=== PATIENT | female | born 1965 | race Caucasian/White ===

== ENCOUNTER 2022-10-19 09:49 | Emergency (ER) | payer BC ==
[2022-10-19] MEDS ORDERED: Sodium Chloride 0.9% 10 ML Syringe FLUSH PRN ×2 (10:16→10:59)
[2022-10-19] MEDS ORDERED: Meclizine 12.5 MG Tab PO ONE (10:18)
[2022-10-19] MEDS ORDERED: Ondansetron 4 MG/2 ML SDV IVPUSH ONE (10:23)
[2022-10-19] MEDS ORDERED: Iopamidol 755 Mg/ML 100 ML Bottle IVPUSH ONE (10:59)
[2022-10-19] MEDS ORDERED: Ketorolac 30 MG/ML SDV IVPUSH ONE (11:51)
[2022-10-19] MEDS ORDERED: diphenhydrAMINE 50 MG/ML SDV IVPUSH ONE (11:52)
== END 2022-10-19 12:27 | disposition home or self-care (01) ==
LOC: JD.ED 09:49
DX: R42 Dizziness and giddiness (principal); R51.9 Headache, unspecified; M54.2 Cervicalgia; E03.9 Hypothyroidism, unspecified; Z79.899 Other long term (current) drug therapy
CPT/HCPCS: 36415; 70450; 70496; 70498; 71045; 80053; 84484; 85025; 85610; 85730; 93005; 96374; 96375; 99284; A9270; J1200; J1885; J2405; J3490; Q9967